=== PATIENT | female | born 1990 ===

== ENCOUNTER 2019-03-01 20:07 | Inpatient (IN) | payer OTHER ==
[2019-03-01] MEDS ORDERED: DINOPROSTONE 10 MG VAG SUPP VG ONE (23:26)
[2019-03-01] MEDS ORDERED: BUTORPHANOL 2 MG/1 ML INJ IV PRN (23:27)
[2019-03-01] MEDS ORDERED: LACTATED RINGERS 1,000 ML IV SCH (23:45)
[2019-03-02 01:20] LABS: Basophils # (Auto) 0.1 K/mm3 (0.0-0.1); Basophils % (Auto) 0.8 % (0.0-1.8); Eosinophils # (Auto) 0.1 K/mm3 (0.0-0.4); Hematocrit 34.9 % (30.3-42.9); Hemoglobin 11.7 gm/dl (10.1-14.3); Lymphocytes # (Auto) 2.6 K/mm3 (1.2-5.4); Lymphocytes % (Auto) 30.7 % (13.4-35.0); Mean Corpuscular HGB Conc 33 % (30-34); Mean Corpuscular Volume 80 fl (79-97); Monocytes # (Auto) 0.6 K/mm3 (0.0-0.8); Monocytes % (Auto) 6.8 % (0.0-7.3); Platelet Count 301 K/mm3 (140-440); Red Blood Count 4.36 M/mm3 (3.65-5.03); Red Cell Distribution Width 15.2 % (13.2-15.2)
--- NOTE | 2019-03-02 05:59 | History and Physical Report ---
History of Present Illness Date of examination: 03/02/19 Date of admission: 03/01/19 20:07 Chief complaint: Presents for scheduled induction of labor due to maternal obesity History of present illness: Early entry to care at [facility], course complicated by a failed early 1hour GTT; followed by a normal 3hour GTT. Past History Past Medical History: no pertinent history Past Surgical History: no surgical history Family/Genetic History: diabetes (parents and aunt) Social history: no significant social history - Obstetrical History Expected Date of Delivery: 03/11/19 Actual Gestation: 38 Week(s) 5 Day(s) : 3 Para: 2 Hx # Term Pregnancies: 2 Number of Living Children: 2 #1 Infant Gender: Female year: ,[birth year] Birthweight: 3.175 kg Method of Delivery: Vaginal Gestational age at delivery: 43 Complications: none #2 Infant Gender: Male year: ,[birth year] Birthweight: 4.082 kg Method of Delivery: Vaginal Gestational age at delivery: 40 Complications: retained placenta Medications and Allergies Allergies Allergy/AdvReac Type Severity Reaction Status Date / Time No Known Allergies Allergy Verified 10/18/14 10:48 Home Medications Medication Instructions Recorded Confirmed Last Taken Type Vit-Fe Fumar-FA [ 1 tab PO QDAY 02/14/15 02/28/15 02/13/15 12:00 History Vitamin] 1 Ferrous Sulfate [Feosol 325 MG tab] 325 mg PO BID #60 tablet 03/01/15 Unknown Rx Ibuprofen [Motrin 600 MG tab] 600 mg PO Q6H #30 tablet 03/01/15 Unknown Rx oxyCODONE /ACETAMINOPHEN [Percocet 2 tab PO Q4H PRN #30 tablet 03/01/15 Unknown Rx 5/325 mg] Active Meds: Active Medications Butorphanol Tartrate (Stadol) 2 mg IV Q2H PRN PRN Reason: Labor Pain Lactated Ringer's (Lactated Ringers) 1,000 mls @ 125 mls/hr IV DIRECT ROSETTA Review of Systems All systems: negative - Vital Signs Vital signs: Vital Signs Pulse BP 85 116/70 03/01/19 21:37 03/01/19 21:37 Temp Pulse Resp BP Pulse Ox 98.3 F 85 16 116/70 03/01/19 23:00 03/01/19 23:00 03/01/19 23:00 03/01/19 23:00 - Physical Exam Breasts: Positive: normal Cardiovascular: Regular rate Lungs: Positive: Clear to auscultation, Normal air movement Abdomen: Positive: normal appearance, soft, normal bowel sounds Genitourinary (Female): Positive: normal external genitalia, normal perenium Uterus: Positive: enlarged - Obstetrical FHR: category 1 Uterine Contraction Monitor Mode: External Cervical Dilatation: 1 Cervical Effacement Percentage: 50 station: -3 Uterine Contraction Pattern: Irregular Uterine Tone Measurement Phase: Resting Uterine Contraction Intensity: Moderate Results Result Diagrams: 03/01/19 23:59 Abnormal lab results 03/01/19 Range/Units 23:59 MCH 27 L (28-32) pg All other labs normal. Assessment and Plan A: IUP @ 38 5/7 weeks Category I Tracing Maternal Obesity GBS Negative P: Admit to L&D Per Routine Orders Cervidil Induction
[2019-03-02] MEDS ORDERED: NALOXONE 0.4 MG/1 ML INJ IV PRN (07:30)
[2019-03-02] MEDS ORDERED: MINERAL OIL 30 ML ORAL LIQD PO PRN (07:30)
[2019-03-02] MEDS ORDERED: LIDOCAINE (2%) 20 MG/1 ML VIAL 20 ML MDV INFILTRATI NR (07:30)
[2019-03-02] MEDS ORDERED: LACTATED RINGERS 1,000 ML IV SCH (08:00)
--- NOTE | 2019-03-02 11:21 | Progress Note ---
Assessment and Plan A: Term IUP at 38w5d Morbid obesity Category 1 tracing Cervidil Induction of labor AROM, clear fluid P: Routine labor orders Cervidil removed May have IV/epidural PRN Anticipate Subjective - Subjective Date of service: 03/02/19 Principal diagnosis: Term IUP @ 38w5d, GBS Neg, IOL Interval history: See H&P Patient reports: movement normal, contractions (mild) Objective - Vital Signs Vital Signs: Vital Signs - 12hr 03/02/19 03/02/19 03/02/19 07:22 07:25 08:25 Temperature 98.1 F Pulse Rate 82 82 86 Respiratory 18 Rate Blood Pressure 121/70 106/66 Blood Pressure 121/70 [Right] O2 Sat by Pulse 97 Oximetry - Exam Breasts: normal Cardiovascular: Regular rate, Normal S1, Normal S2, No murmurs Abdomen: Present: normal appearance, soft, normal bowel sounds, other (gravid) Vulva: both: normal Uterus: Present: other (gravid; S=D) FHR: category 1 Uterine Contraction Monitor Mode: External Cervical Dilatation: 4 (Cervidil removed, AROM, lg amt clear fluid) Cervical Effacement Percentage: 50 station: -2 Uterine Contraction Pattern: Regular Uterine Tone Measurement Phase: Resting Uterine Contraction Intensity: Moderate - Labs Labs: Abnormal Labs 03/01/19 23:59 MCH 27 L Laboratory Results - last 24 hr 03/01/19 03/01/19 23:59 23:59 WBC 8.6 RBC 4.36 Hgb 11.7 Hct 34.9 MCV 80 MCH 27 L MCHC 33 RDW 15.2 Plt Count 301 Lymph % (Auto) 30.7 [place] % (Auto) 6.8 Eos % (Auto) 1.0 Baso % (Auto) 0.8 Lymph # 2.6 [place] # 0.6 Eos # 0.1 Baso # 0.1 Seg Neutrophils % 60.7 Seg Neutrophils # 5.2 Blood Type O POSITIVE Antibody Screen Negative
[2019-03-02] MEDS ORDERED: OXYTOCIN DRIP 30 UNITS/500 ML BAG IV SCH (12:00)
[2019-03-02] MEDS: OXYTOCIN 20 UNIT/1000ML DRIP 20 UNITS/1,000 ML BAG IV SCH ×2 (13:03→13:45)
[2019-03-02] MEDS ORDERED: LANOLIN/ZINC/DIMETHICONE (LANSINOH) 7 GM TP PRN (13:17)
[2019-03-02] MEDS ORDERED: ACETAMINOPHEN 325 MG TAB PO PRN (13:17)
[2019-03-02] MEDS ORDERED: ONDANSETRON 4 MG/2 ML INJ IV PRN (13:17)
[2019-03-02] MEDS ORDERED: WITCH HAZEL/ GLYCERIN PAD TP PRN (13:17)
[2019-03-02] MEDS ORDERED: MAGNESIUM HYDROXIDE (MOM) ORAL LIQD UDC PO PRN (13:17)
[2019-03-02] MEDS ORDERED: diphenhydrAMINE 25 MG CAP PO PRN (13:17)
[2019-03-02] MEDS ORDERED: HYDROcodone/ACETAMINOPHEN 5-325 MG TAB PO PRN (13:17)
[2019-03-02] MEDS ORDERED: PROMETHAZINE 25 MG TAB PO PRN (13:17)
--- NOTE | 2019-03-02 13:24 | Procedure Note ---
OB Delivery Note - Delivery Date of Delivery: 03/02/19 (12:56) Surgeon: NAHOMY VELAZQUEZ (SHAISTA) Estimated blood loss: 200cc - Vaginal Delivery presentation: vertex Delivery position: OA Intrapartum events: none Delivery induction: cervidil Delivery augmentation: rupture of membranes Delivery monitor: external FHT, external uterine Route of delivery: (12:56) Delivery placenta: spontaneous (13:02) Delivery cord: 3 umbilical vessels Delivery laceration: none Anesthesia: none Delivery comments: viable female REYNA position over intact perineum at 12:56. Vigorous placed [id number] on mothers abdomen. Delayed cord clamping then cut by FOB. Cord blood collected per protocol. Spontaneous carr delivery of intact placenta with 3VC at 13:02. FF@U-2, small lochia. No tears or lacerations. EBL 200ml. Infant and mother left in stable condition in L&D. - A at 1 minute: 8 at 5 minutes: 9 Gender: Female (8lbs 13oz, 3985grams, 20")
[2019-03-02] MEDS: IBUPROFEN 600 MG TAB PO SCH ×2 (17:13→18:32)
[2019-03-03 00:51] LABS: Hematocrit 33.6 % (30.3-42.9); Hemoglobin 11.2 gm/dl (10.1-14.3)
[2019-03-03] MEDS: IBUPROFEN 600 MG TAB PO SCH ×2 (00:55→06:27)
[2019-03-03 10:09] VITALS: BP 131/84
--- NOTE | 2019-03-03 10:57 | Progress Note ---
Assessment and Plan A: PPD#1 s/p pain well controlled Doing well Stable P: Routine PP care Discharge home today Subjective - Subjective Date of service: 03/03/19 Principal diagnosis: PPD#1 s/p Interval history: See H&P and delivery note Patient reports: appetite normal, voiding normally, pain well controlled, flatus, no bowel movement Irvona: doing well, nursing well Objective - Vital Signs Latest vital signs: Vital Signs Temp Pulse Resp BP BP Pulse Ox 03/03/19 09:32 97.3 F L 89 18 131/84 100 03/03/19 01:56 97.5 F L 79 18 111/52 100 03/02/19 20:15 97.5 F L 84 20 124/55 98 03/02/19 16:52 98.2 F 85 18 120/56 100 03/02/19 16:14 120/56 03/02/19 14:07 73 122/71 03/02/19 13:37 76 138/84 03/02/19 13:09 98.0 F 03/02/19 13:07 93 H 115/79 03/02/19 12:56 47 L 84 03/02/19 12:53 103 H 98 03/02/19 12:48 108 H 98 03/02/19 12:43 104 H 97 03/02/19 12:38 94 H 150/63 98 03/02/19 12:33 86 98 03/02/19 12:28 97 H 98 03/02/19 12:26 61 74 L 03/02/19 12:23 97 H 95 03/02/19 12:21 108 H 91 03/02/19 12:18 51 L 79 L 03/02/19 12:16 80 L 03/02/19 12:11 93 H 100 03/02/19 12:07 96 H 133/80 03/02/19 12:06 91 H 97 03/02/19 11:44 98 F 14 Intake and Output 03/02/19 03/03/19 03/03/19 23:59 07:59 15:59 Intake Total 240 480 Output Total 400 1000 Balance -160 -520 Intake: Intake, Free Water 240 480 Output: Urine 400 1000 Void 400 1000 Other: Total, Output Amount 400 1000 # Voids Void 2 - Exam Breasts: Present: normal, Cardiovascular: Present: Regular rate, Normal S1, Normal S2, No murmurs Lungs: Present: Clear to auscultation, Normal air movement Abdomen: Present: normal appearance, soft, normal bowel sounds. Absent: distention Vulva: both: normal Uterus: Present: normal, firm Extremities: Present: normal Deep Tendon Reflex Grade: Normal +2
--- NOTE | 2019-03-03 10:58 | Discharge Summary ---
Providers - Providers Date of Admission: 03/01/19 20:07 Date of discharge: 03/03/19 Attending physician: KELLIE TOMLINSON MD Primary care physician: KELLIE TOMLINSON MD Hospitalization Reason for admission: induction of labor, IUP at term Delivery: Procedure details: See H&P and delivery note Episiotomy: none Laceration: none Other procedures: none complications: none Discharge diagnosis: IUP at term delivered baby: female Condition at discharge: Good Disposition: DC-01 TO HOME OR SELFCARE Plan - Provider Discharge Summary Activity: routine, no sex for 6 weeks, no heavy lifting 4 weeks, no strenuous exercise Diet: routine Instructions: routine Additional instructions: [] Smoking cessation referral if applicable(refer to patient education folder for contact #) [] Refer to [facility]'s [facility] Booklet Call your doctor immediately for: * Fever > 100.5 * Heavy vaginal bleeding ( >1 pad per hour) * Severe persistent headache * Shortness of breath * Reddened, hot, painful area to leg or breast * Drainage or odor from incision. * Keep incision clean and dry at all times and follow doctor's instructions regarding bathing/showering - Follow up plan Follow up: KELLIE TOMLINSON MD [Primary Care Provider] - 6 Weeks
== END 2019-03-03 16:40 | disposition home or self-care (01) | DRG 807 ==
LOC: LD 20:07 → OB 03-02 16:09
PROVIDERS: ADMIT Obstetrics & Gynecology; ATTEND Obstetrics & Gynecology
PROC: 10E0XZZ Delivery of Products of Conception, External Approach (ICD-10-PCS; principal; 2019-03-02)
PROC: 3E0P7VZ Introduction of Hormone into Female Reproductive, Via Natural or Artificial Opening (ICD-10-PCS; 2019-03-02)
PROC: 10907ZC Drainage of Amniotic Fluid, Therapeutic from Products of Conception, Via Natural or Artificial Opening (ICD-10-PCS; 2019-03-02)
DX: O99.214 Obesity complicating childbirth (principal); Z37.0 Single live birth; E66.01 Morbid (severe) obesity due to excess calories; Z3A.38 38 weeks gestation of pregnancy; Z71.3 Dietary counseling and surveillance; Z83.3 Family history of diabetes mellitus; Z79.899 Other long term (current) drug therapy
CPT/HCPCS: 36415; 59200; 85014; 85018; 85025; 86592; 86850; 86900; 86901; G0378; J2590; J7120